=== PATIENT | male | born 1955 | race Caucasian/White ===

== ENCOUNTER 2020-02-05 06:36 | Outpatient (REF) | payer OTHER, SELFPAY ==
[2020-02-05 08:16] LABS: Alanine Aminotransferase 31 U/L (0-40); Albumin Level 4.5 g/dL (3.5-5.0); Alkaline Phosphatase 94 U/L (39-117); Anion Gap 13 (12-20); Aspartate Amino Transferase 25 U/L (5-37); Bilirubin Total 0.6 mg/dL (0.0-1.0); Blood Urea Nitrogen 32 mg/dL (9-16); Calcium 9.2 mg/dL (8.4-10.2); Carbon Dioxide 26 mmol/L (22-29); Chloride 105 mmol/L (96-108); Cholesterol 102 mg/dL; Estimated Glomerular Filt Rate 58; Glucose Fasting 129 mg/dL (60-99); HDL Cholesterol 32 mg/dL; LDL Cholesterol Calculated 58 mg/dl; Potassium 4.4 mmol/l (3.3-5.1); Sodium 140 mmol/L (135-145); Total Protein 7.2 g/dL (6.5-8.0); Triglycerides 62 mg/dL
[2020-02-05 08:43] LABS: Creatinine Urine 94.98 mg/dL; Microalbum/Creatinine Ratio Ur 12.6 ug/mg cr
== END 2020-02-05 06:37 | disposition home or self-care (01) ==
LOC: HO.LAB 06:36
PROVIDERS: Visit Provider Internal Medicine
DX: E78.00 Pure hypercholesterolemia, unspecified (principal); E11.9 Type 2 diabetes mellitus without complications
CPT/HCPCS: 80053; 80061; 82043

== ENCOUNTER 2021-01-24 10:29 | Outpatient (REF) | payer MEDICAID, SELFPAY ==
[2021-01-24 12:19] LABS: MANUAL DIFF FLAG NO
[2021-01-24 12:35] LABS: Basophils Absolute Auto 0.1 X10*3/uL (0.0-0.2); Basophils Percent Auto 0.7 % (0-2); Eosinophils Absolute Auto 0.5 X10*3/uL (0.0-0.4); Eosinophils Percent Auto 5.1 % (0-4); Hematocrit 45.8 % (42-52); Imm Gran Abs Auto 0.03 X10*3/uL (0.00-0.03); Imm Gran Pct Auto 0.3 % (0.0-0.4); Lymphocytes Absolute Auto 1.8 X10*3/uL (1.2-4.9); Lymphocytes Percent Auto 19.5 % (20-40); Mean Corpuscular HGB Conc 32.8 g/dl (31.0-36.0); Mean Corpuscular Hemoglobin 27.8 pg (27.0-33.0); Mean Platelet Volume 10.8 fL (9.4-12.4); Monocytes Percent Auto 10.4 % (2-11); Neutrophils Absolute Auto 5.9 X10*3/uL (2.0-8.3); Platelet Count 224 X10*3/uL (160-400); Red Blood Count 5.39 X10*6/uL (4.60-5.80); Red Cell Distribution Width 12.8 % (11.0-16.0); White Blood Count 9.2 X10*3/uL (4.8-10.8)
[2021-01-24 13:05] LABS: Alanine Aminotransferase 32 U/L (0-40); Albumin Level 4.6 g/dL (3.5-5.0); Alkaline Phosphatase 107 U/L (39-117); Anion Gap 15 (12-20); Aspartate Amino Transferase 26 U/L (5-37); Bilirubin Total 0.7 mg/dL (0.0-1.0); Blood Urea Nitrogen 23 mg/dL (9-16); Calcium 9.8 mg/dL (8.4-10.2); Carbon Dioxide 25 mmol/L (22-29); Chloride 103 mmol/L (96-108); Estimated Glomerular Filt Rate 44; Glucose Random 151 mg/dL (60-115); Potassium 4.7 mmol/L (3.3-5.1); Sodium 138 mmol/L (135-145); Total Protein 7.8 g/dL (6.5-8.0)
== END 2021-01-24 10:30 | disposition home or self-care (01) ==
LOC: HO.LAB 10:29
PROVIDERS: PCP Internal Medicine; Referring Provider Internal Medicine; Visit Provider Nurse Practitioner
DX: D12.6 Benign neoplasm of colon, unspecified (principal); Z12.11 Encounter for screening for malignant neoplasm of colon
CPT/HCPCS: 36415; 80053; 85025; 99202

== ENCOUNTER → 2021-05-15 09:00 | Day surgery (SDC) | payer MEDICAID, SELFPAY ==
[2021-05-09 15:18] VITALS: BMI 26.2
--- NOTE | 2021-05-12 09:08 | P.CONAN_ITS ---
Documented by User: Janet Hurley NP 05/12/21 09:09 HPI - Anesthesia Eval Consult details Narrative: 65yo M for Colonoscopy PMFSH Active Problems Active Problems: All Active Problems (Updated 05/09/21 @ 15:21 by Serina Dial RN) Colon cancer screening (Acute) Tubular adenoma of colon (Acute) Diabetes (Acute) Hypertension (Acute) High cholesterol (Acute) Asthma (Acute) BPH (benign prostatic hyperplasia) (Acute) OA (osteoarthritis) of knee (Acute) Past Medical History Medical History Asthma BPH (benign prostatic hyperplasia) COVID-19 vaccine series completed Diabetes Elevated cholesterol HTN (hypertension) Osteoarthritis Family History Family History Father Hypertension Stroke Mother Hypertension Stroke Acute CVA (cerebrovascular accident) Family/Other FH: mental illness Brother Heroin abuse Surgical History Surgical History (Updated 05/09/21 @ 15:05 by Serina Dial RN) H/O colonoscopy History of open reduction and internal fixation (ORIF) procedure History of removal of cyst Hx of arthroscopy of knee Hx of cataract extraction Social History Social History Patient Tobacco Use Status: Former Tobacco user Quit Date: 2020 Tobacco use type: Cigarette Use of substances other than those prescribed or required for medical reasons: No Have you been hit, kicked, punched, or otherwise hurt by someone within the past year? If so, by whom?: No Are you DNR?: No Advance Directives: No Advance Directives Information Provided: Yes Advance Directives on File: No Recently lost weight without trying: No Eating poorly because of decreased appetite: No Nutrition Risks: No Nutritional Risk Meds Allergies Allergy/AdvReac Type Severity Reaction Status Date / Time pravastatin AdvReac Intermediate Headache Verified 01/24/21 11:56 Home Medications Medication Instructions Recorded Confirmed Last Taken Type albuterol sulfate 2 puff PO Q4H 01/24/21 05/09/21 Unknown History 90 mcg/actuation PRN aerosol inhaler (ProAir HFA) atorvastatin 40 40 mg PO DAILY 01/24/21 05/09/21 Unknown History mg tablet carvedilol 6.25 6.25 mg PO BID 01/24/21 05/09/21 Unknown History mg tablet fluticasone 1 puff PO BID 01/24/21 05/09/21 Unknown History propionate 220 mcg/actuation HFA aerosol inhaler (Flovent HFA) hydrochlorothiazi 12.5 mg PO DAILY 01/24/21 05/09/21 Unknown History de 12.5 mg tablet lisinopril 30 mg 30 mg PO DAILY 01/24/21 05/09/21 Unknown History tablet sitagliptin 100 100 mg PO DAILY 01/24/21 Unknown History mg tablet (Januvia) sitagliptin 100 100 mg PO DAILY 01/24/21 05/09/21 Unknown History mg tablet (Januvia) Exam Exam Date and Time: May 12, [id number] Height,Weight and Vital Signs: Height 5 ft 7.5 in Weight 77.122 kg Pertinent Lab Results Pertinent Lab Results: Laboratory Tests 01/24/21 01/24/21 12:17 12:17 WBC 9.2 Hgb 15.0 Hct 45.8 Plt Count 224 Sodium 138 Potassium 4.7 Chloride 103 Carbon Dioxide 25 BUN 23 H Creatinine 1.59 H Assessment and Plan Assessment Anesthesia Assessment: Chart Reviewed Documented by User: Cristina Mayorga MD 05/15/21 10:05 [facility] Past Medical History Medical History Asthma BPH (benign prostatic hyperplasia) COVID-19 vaccine series completed Diabetes Elevated cholesterol HTN (hypertension) Osteoarthritis Functional capacity: independent ambulation Family History Family History Father Hypertension Stroke Mother Hypertension Stroke Acute CVA (cerebrovascular accident) Family/Other FH: mental illness Brother Heroin abuse Family history of problems with anesthesia: No Surgical History Surgical History (Updated 05/09/21 @ 15:05 by Serina Urgo, RN) H/O colonoscopy History of open reduction and internal fixation (ORIF) procedure History of removal of cyst Hx of arthroscopy of knee Hx of cataract extraction Social History Social History Patient Tobacco Use Status: Former Tobacco user Quit Date: 2020 Tobacco use type: Cigarette Use of substances other than those prescribed or required for medical reasons: No Have you been hit, kicked, punched, or otherwise hurt by someone within the past year? If so, by whom?: No Are you DNR?: No Advance Directives: No Advance Directives Information Provided: Yes Advance Directives on File: No Recently lost weight without trying: No Eating poorly because of decreased appetite: No Nutrition Risks: No Nutritional Risk Meds Allergies Allergy/AdvReac Type Severity Reaction Status Date / Time pravastatin AdvReac Intermediate Headache Verified 01/24/21 11:56 Home Medications Medication Instructions Recorded Confirmed Last Taken Type albuterol sulfate 2 puff PO Q4H 01/24/21 05/09/21 Unknown History 90 mcg/actuation PRN aerosol inhaler (ProAir HFA) atorvastatin 40 40 mg PO DAILY 01/24/21 05/09/21 Unknown History mg tablet carvedilol 6.25 6.25 mg PO BID 01/24/21 05/09/21 Unknown History mg tablet fluticasone 1 puff PO BID 01/24/21 05/09/21 Unknown History propionate 220 mcg/actuation HFA aerosol inhaler (Flovent HFA) hydrochlorothiazi 12.5 mg PO DAILY 01/24/21 05/09/21 Unknown History de 12.5 mg tablet lisinopril 30 mg 30 mg PO DAILY 01/24/21 05/09/21 Unknown History tablet sitagliptin 100 100 mg PO DAILY 01/24/21 Unknown History mg tablet (Januvia) sitagliptin 100 100 mg PO DAILY 01/24/21 05/09/21 Unknown History mg tablet (Januvia) Exam Airway Mallampati Class: I Assessment and Plan Final Anesthetic Review Family History of Problems with Anesthesia: No
[2021-05-15 09:16] LABS: Glucose, Whole Blood 219 mg/dL (60-115)
[2021-05-15 09:20] VITALS: BP 172/87; PULSE 64; RESP 18; TEMP 36.3; O2SAT 98
[2021-05-15] MEDS: Lactated Ringers 1,000 ML 100 ML IVCONT (09:46)
--- NOTE | 2021-05-15 10:03 | PC.NURSE ---
SURGERY DC'D R/T PATIENT EATING YESTERDAY AT 1500 AND ONLY TOOK 1/2 OF PREP R/T FEELING NAUSEOUS.
--- NOTE | 2021-05-15 10:19 | PM.EVENT ---
Event Note Date of Service: 05/15/21 Event Note: Pt scheduled for colonoscopy today. Only able to take 1/2 the prep (Dulcolax and Golytely) due to nausea and vomiting. Took solid food at 3 pm yesterday and passing brown stools.. Pt advised to reschedule his procedure. He stated that the prep he took in 2013 worked for him (Suprep). Advised to keep FU appointment with Jojo Saucedo on 06/06/21 to rediscuss his prep prior to scheduling his next colonoscopy. Needs Suprpe for his next colonoscopy.
== END ==
PROVIDERS: PCP Internal Medicine; Visit Provider Internal Medicine Gastroenterology
DX: Z12.11 Encounter for screening for malignant neoplasm of colon (principal); Z53.8 Procedure and treatment not carried out for other reasons; Z86.010 Personal history of colon polyps; I10 Essential (primary) hypertension; E11.9 Type 2 diabetes mellitus without complications; Z79.84 Long term (current) use of oral hypoglycemic drugs
CPT/HCPCS: 82947

== ENCOUNTER 2021-10-25 09:48 | Outpatient (REF) | payer OTHER, SELFPAY ==
--- NOTE | ~2021-10-25 | XR_ITS ---
EXAMINATION: XR SHOULDER, RIGHT CLINICAL INFORMATION: Pain COMPARISON: Previous x-ray August 2014 TECHNIQUE: AP external rotation, Grashey, scapular Y, and axillary views of the right shoulder. FINDINGS: Bone alignment is normal. No fracture or dislocation is seen. The lucent lesion with sclerotic margin in the proximal shaft of the humerus measuring 1 cm is stable from 2015 exam suggesting a benign lesion. The glenohumeral joint is normal. There is mild arthritis at the acromioclavicular joint. Soft tissues are unremarkable. XR/XR shoulder RT min 2V IMPRESSION: Arthritis at the acromioclavicular joint. Stable lucent lucent lesion with surrounding sclerosis in the proximal right humeral shaft from 2015 suggesting a benign lesion.
== END 2021-10-25 09:49 | disposition home or self-care (01) ==
LOC: HO.XRAY 09:48
PROVIDERS: PCP Internal Medicine; Visit Provider Internal Medicine
DX: M25.511 Pain in right shoulder (principal)
CPT/HCPCS: 73030

== ENCOUNTER → 2021-12-20 07:35 | Outpatient (BNVA) | payer OTHER, SELFPAY | PROVIDERS: PCP Internal Medicine; Visit Provider Physician Assistant | DX: M75.80 Other shoulder lesions, unspecified shoulder (principal); M19.019 Primary osteoarthritis, unspecified shoulder | CPT/HCPCS: 99202 ==

== ENCOUNTER → 2022-03-16 14:04 | Outpatient (BNVA) | payer OTHER, SELFPAY | PROVIDERS: PCP Internal Medicine; Visit Provider Urology | DX: N40.1 Benign prostatic hyperplasia with lower urinary tract symptoms (principal); R35.1 Nocturia | CPT/HCPCS: 51798; 99202 ==